=== PATIENT | male | born 1945 | race Caucasian/White ===

== ENCOUNTER 2016-10-20 12:52 | Emergency (ER) | payer MEDICARE ==
[~2016-10-20 12:52] MED LIST: ALLO100T PO; ASPI81TA44 PO; ATEN100T PO; ATOR40TA59 PO; LISI10TA2 PO; METF500T4 PO; OMEP20CA9 PO; TAMS0.4C2 PO
[2016-10-20] MEDS ORDERED: AMLO5TAB2 PO (13:35)
--- NOTE | 2016-10-20 14:25 | RAD ---
PQRS Compliance Statement: One or more of the following individualized dose reduction techniques were utilized for this examination: 1. Automated exposure control 2. Adjustment of the mA and/or kV according to patient size 3. Use of iterative reconstruction technique CT of the face without contrast, 10/20/2016: History: Cheek swelling Noncontrast scans were obtained as requested. There is only minimal streaky increased density in the subcutaneous fat of the left cheek compatible with nonspecific edema/ inflammation. No underlying mass or focal fluid collection is seen to suggest abscess. There are a few artifacts in this region related to a dental filling. The paranasal sinuses are clear. The orbital contents are unremarkable. No parotid or submandibular gland abnormality is detected. No submandibular or upper neck adenopathy is evident. No fracture or destructive bony lesion is seen. IMPRESSION: Minimal nonspecific subcutaneous inflammation in the left cheek.
[2016-10-20 15:02] VITALS: BP 151/80
--- NOTE | 2016-10-20 15:09 | PHYS DOC ---
Past Medical History Past Medical History: Diabetes-Type II, GERD, Hypertension Additional Past Medical Histor: rapid heart beat,GOUT Past Surgical History: Appendectomy, Knee Replacement Alcohol Use: None Drug Use: None Adult General Chief Complaint Chief Complaint: FACE SWELLING HPI HPI Patient is a 71 year old male who presents from home with the complaint of left -sided facial swelling and numbness and tingling. The patient first started having some intermittent swelling of his lips and inside of his mouth about a month ago. He saw Dr. Lewis who stopped his lisinopril and put him on Norvasc. It seemed to get better for a week or 2 but then he started again having some intermittent swelling of his lips, both on the outside on the inside, he notices some swollen bumps on the inside of his lips from time to time. This morning, the left side of his face feels somewhat swollen. It also feels a little numb and tingling. He called the office who told him to come to the emergency department. Patient states there is no chance that he accidentally took lisinopril again. He didn't discard it, but he put it when the back of his cabinet. It's in blister packs and he knows for sure that he has not accidentally used it. He did see his dentist to told him that this does not seem to be related to his teeth. He has no pain, just swelling. No fever. PCP Dr. Lewis Review of Systems Review of Systems Constitutional: Denies fever or chills [] Eyes: Denies change in visual acuity, redness, or eye pain [] HENT: Denies nasal congestion or sore throat , denies pain of the teeth or inside the mouth Respiratory: Denies cough or shortness of breath [] Cardiovascular: Denies chest pain Musculoskeletal: Denies back pain or joint pain [] Integument: Denies rash or skin lesions [] Neurologic: Denies headache, he has noticed left-sided facial numbness and tingling that goes along with the swelling Allergies Allergies Allergies Coded Allergies Type Severity Reaction Last Updated Verified lisinopril Allergy Severe facial swelling 10/20/16 Yes Physical Exam Physical Exam Constitutional: Well developed, well nourished, no acute distress, non-toxic appearance. Alert, mentating normally, no difficulty swallowing or talking HENT: Normocephalic, atraumatic, bilateral external ears normal, bilateral EACs normal with some cerumen bilaterally, nose normal. There is mild swelling on the left side of the face, no tenderness, not red, not fluctuant. It is soft nonspecific swelling. It is located approximately adjacent to the first second and third upper molars on the left. It is superior to the parotid/mandibular angle. Intraorally, dentition does not have any marked abnormalities. There appears to be swelling on the inside of the cheek as well but no redness, no induration. No lesions noted. Tongue and lips are normal. Oropharynx, uvula, are normal. There is no facial asymmetry of a neurologic variety, the facial asymmetry is due to the mild swelling. Eyes: PERRLA, EOMI, conjunctiva normal, no discharge. [] Neck: Normal range of motion, no tenderness, supple, no stridor. No masses, no lymphadenopathy. Cardiovascular:Heart rate regular rhythm, no murmur [] Lungs & Thorax: Bilateral breath sounds clear to auscultation [] Skin: Warm, dry, no erythema, no rash. [] Extremities: No tenderness, no cyanosis, no clubbing, ROM intact, no edema. [] Neurologic: Alert and oriented X 3, normal motor function, normal sensory function, no focal deficits noted. [] Current Patient Data Vital Signs Vital Signs Date Time Temp Pulse Resp B/P Pulse Ox O2 Delivery O2 Flow Rate FiO2 10/20/16 15:02 62 22 151/80 98 Room Air 10/20/16 13:16 97.6 97.6 EKG EKG [] Radiology/Procedures Radiology/Procedures CT of the face without contrast, 10/20/2016: History: Cheek swelling Noncontrast scans were obtained as requested. There is only minimal streaky increased density in the subcutaneous fat of the left cheek compatible with nonspecific edema/ inflammation. No underlying mass or focal fluid collection is seen to suggest abscess. There are a few artifacts in this region related to a dental filling. The paranasal sinuses are clear. The orbital contents are unremarkable. No parotid or submandibular gland abnormality is detected. No submandibular or upper neck adenopathy is evident. No fracture or destructive bony lesion is seen. IMPRESSION: Minimal nonspecific subcutaneous inflammation in the left cheek. [] Course & Med Decision Making Course & Med Decision Making Pertinent Labs and Imaging studies reviewed. (See chart for details) 71-year-old male with intermittent facial swelling mostly around the lips for the past month, was originally attributed possibly to lisinopril, and in fact stopping the lisinopril did seem to help for a while, now has recurrence of swelling more so on the left cheek area although he has not been exposed to an GREGORIO inhibitor. The swelling today is mild. It does not appear to be cellulitis. It does not appear to be interfering with his airway or swallowing. CT scan was obtained and read by the radiologist. They noted minimal nonspecific subcutaneous edema/inflammation in the left cheek. No mass, no abscess. I discussed the case with Dr. Lewis, patient's PCP. Dr. Lewis will follow him up in the office to see how his symptoms are doing. He suggested that we start him on a Medrol Dosepak which I did. Discussed this with the patient who is comfortable with discharge. During over 3 hours in the emergency department, the patient's facial swelling did not worsen, if anything did get a little bit better prior to discharge. [] Dragon Disclaimer Dragon Disclaimer This electronic medical record was generated, in whole or in part, using a voice recognition dictation system. Departure Departure Impression: Primary Impression: Left facial swelling Disposition: 01 HOME, SELF-CARE Condition: STABLE Referrals: Denise LEWIS MD (PCP) Additional Instructions: Today, CT scan did not show any serious cause of the swelling. I discussed your case with Dr. Lewis. Call the office for a follow-up appointment for recheck. If you get worse, if your swelling interferes with your swallowing or breathing, return to the ED right away. Continue the medications you are taking. We have added another course of steroids for inflammation. Scripts Methylprednisolone (Medrol)4 Mg Tab.ds.pk1 Pkg PO UD #1 PKG As directed for facial swelling Prov:BERTO VALVERDE MD 10/20/16 BERTO VALVERDE MD Oct 20, 2016 15:09
[2016-10-20] MEDS ORDERED: METH4TAB2 PO (15:42)
== END 2016-10-20 15:52 | disposition home or self-care (01) ==
LOC: ER 12:52
DX: R22.0 Localized swelling, mass and lump, head (principal); R20.0 Anesthesia of skin; R20.2 Paresthesia of skin; E11.9 Type 2 diabetes mellitus without complications; I10 Essential (primary) hypertension; K21.9 Gastro-esophageal reflux disease without esophagitis; M10.9 Gout, unspecified; Z90.49 Acquired absence of other specified parts of digestive tract; Z88.8 Allergy status to other drugs, medicaments and biological substances
CPT/HCPCS: 70486; 99284-25

== ENCOUNTER 2018-04-10 14:17 | Emergency (ER) | payer MEDICARE ==
[~2018-04-10] VITALS: Ht 172.7 cm; Wt 90.7 kg
[~2018-04-10 14:17] MED LIST changes: +AMLO5TAB2 PO; -ASPI81TA44 PO; +ASPI81TA59 PO; -METF500T4 PO; +METF500T5 PO; +METH4TAB2 PO
[2018-04-10] MEDS ORDERED: ASPIRIN 325 MG TABLET PO ONE (14:45)
[2018-04-10 14:51] LABS: BASO % 1 % (0-3); EOS # 0.1 x10^3/uL (0.0-0.7); EOS % 2 % (0-3); HEMATOCRIT 42.2 % (39.0-53.0); HEMOGLOBIN 14.5 g/dL (13.0-17.5); LYMPH # 1.8 x10^3/uL (1.0-4.8); LYMPH % 30 % (24-48); MEAN CORPUSCULAR HEMOGLOBIN 30 pg (25-35); MEAN CORPUSCULAR HGB CONC 34 g/dL (31-37); MEAN CORPUSCULAR VOLUME 87 fL (79-100); MONO # 0.5 x10^3/uL (0.0-1.1); MONO % 8 % (0-9); NEUT # 3.7 x10^3uL (1.8-7.7); NEUT % 60 % (31-73); PLATELET COUNT 237 x10^3/uL (140-400); RED BLOOD COUNT 4.86 x10^6/uL (4.30-5.70); RED CELL DISTRIBUTION WIDTH 14.5 % (11.5-14.5); WHITE BLOOD COUNT 6.2 x10^3/uL (4.0-11.0)
[2018-04-10 15:04] LABS: CALCIUM 9.6 mg/dL (8.5-10.1); GFR 73.7; POTASSIUM 3.8 mmol/L (3.5-5.1)
[2018-04-10 15:07] LABS: ALBUMIN 4.2 g/dL (3.4-5.0); ALBUMIN/GLOBULIN RATIO 1.2 (1.0-1.7); TOTAL BILIRUBIN 0.6 mg/dL (0.2-1.0); TOTAL PROTEIN 7.6 g/dL (6.4-8.2)
--- NOTE | 2018-04-10 15:23 | EKG ---
[facility] [address] [place] [address] Test Date: 2018-04-10 Test Time: 14:22:14 Pat Name: PAULA ERAZO Department: Room: Gender: M [employer] Associate: : 1945 Requested By: EVAN KEE Order Number: [id number] Reading MD: Sreekanth Keenan MD Measurements Intervals Windfall Rate: 62 P: 42 ND: 212 QRS: 13 QRSD: 84 T: 18 QT: 404 QTc: 412 Interpretive Statements SINUS RHYTHM Electronically Signed On 04-13-2018 15:16:09 CDT by Sreekanth Keenan MD
--- NOTE | 2018-04-10 15:25 | RAD ---
PA and lateral chest radiograph. History: Chest pain for 4 days. Comparison: None. Findings: Cardiomediastinal silhouette is within normal limits for size. Bilateral lung pagan appear clear without evidence of infiltrate, effusion, or pneumothorax. Multiple thoracic levels demonstrate marginal disc osteophytes. Impression: 1. No acute cardiopulmonary process. Electronically signed by: Yevgeniy Pedro MD (04/10/2018 3:22 PM) [facility]
--- NOTE | 2018-04-10 15:50 | PHYS DOC ---
Past Medical History Past Medical History: Diabetes-Type II, GERD, Other Additional Past Medical Histor: rapid heart rate Past Surgical History: Appendectomy Additional Past Surgical Histo: knee surgery Alcohol Use: None Drug Use: None Adult General Chief Complaint Chief Complaint: CHEST PAIN HPI HPI Patient is a 73 year old M who presents with chest pain that is dull in nature for the last 2 days. Patient reports this started out as sharp intermittent pain and then became dull. He thinks it may be reflux, but isn't sure. It is not exertional in nature. No sob or diaphoresis. He reports that the first day he could let out a large burp and the pain would subside. Last stress test years ago. Hx of tachyarrhythmia, borderline diabetic. Review of Systems Review of Systems Constitutional: Denies fever or chills [] Respiratory: Denies cough or shortness of breath [] Cardiovascular: Dull chest pain, no palpitations GI: Denies abdominal pain, nausea, vomiting Musculoskeletal: Denies back pain or joint pain [] Integument: Denies rash or skin lesions [] Neurologic: Denies headache, focal weakness or sensory changes [] All other systems were reviewed and found to be within normal limits, except as documented in this note. Current Medications Current Medications Current Medications Medications (Trade) Dose Ordered Sig/[place] Start Time Stop Time Status Last Admin Dose Admin Aspirin (Clemente Aspirin) 325 mg 1X ONCE 04/10/18 14:45 04/10/18 14:48 DC Allergies Allergies Allergies Coded Allergies Type Severity Reaction Last Updated Verified lisinopril Allergy Severe facial swelling 10/20/16 Yes Physical Exam Physical Exam Constitutional: Well developed, well nourished, no acute distress, non-toxic appearance. [] HENT: Normocephalic, atraumatic Eyes: PERRLA, EOMI, conjunctiva normal, no discharge. [] Neck: Normal range of motion, no tenderness, supple, no stridor. [] Cardiovascular:Heart rate regular rhythm, no murmur [] Lungs & Thorax: Bilateral breath sounds clear to auscultation [] Abdomen: Bowel sounds normal, soft, no tenderness, no masses, no pulsatile masses. [] Skin: Warm, dry, no erythema, no rash. [] Neurologic: Alert and oriented X 3, normal motor function, normal sensory function, no focal deficits noted. [] Psychologic: Affect normal, judgement normal, mood normal. [] Current Patient Data Vital Signs Vital Signs Date Time Temp Pulse Resp B/P (MAP) Pulse Ox O2 Delivery O2 Flow Rate FiO2 04/10/18 15:28 58 16 133/72 (92) 96 Room Air 04/10/18 14:28 99.0 99.0 Lab Values Laboratory Tests Test 04/10/18 14:30 White Blood Count 6.2 x10^3/uL (4.0-11.0) Red Blood Count 4.86 x10^6/uL (4.30-5.70) Hemoglobin 14.5 g/dL (13.0-17.5) Hematocrit 42.2 % (39.0-53.0) Mean Corpuscular Volume 87 fL (79-100) Mean Corpuscular Hemoglobin 30 pg (25-35) Mean Corpuscular Hemoglobin Concent 34 g/dL (31-37) Red Cell Distribution Width 14.5 % (11.5-14.5) Platelet Count 237 x10^3/uL (140-400) Neutrophils (%) (Auto) 60 % (31-73) Lymphocytes (%) (Auto) 30 % (24-48) Monocytes (%) (Auto) 8 % (0-9) Eosinophils (%) (Auto) 2 % (0-3) Basophils (%) (Auto) 1 % (0-3) Neutrophils # (Auto) 3.7 x10^3uL (1.8-7.7) Lymphocytes # (Auto) 1.8 x10^3/uL (1.0-4.8) Monocytes # (Auto) 0.5 x10^3/uL (0.0-1.1) Eosinophils # (Auto) 0.1 x10^3/uL (0.0-0.7) Basophils # (Auto) 0.0 x10^3/uL (0.0-0.2) D-Dimer (Bijal) < 0.27 ug/mlFEU Sodium Level 138 mmol/L (136-145) Potassium Level 3.8 mmol/L (3.5-5.1) Chloride Level 103 mmol/L (98-107) Carbon Dioxide Level 25 mmol/L (21-32) Anion Gap 10 (6-14) Blood Urea Nitrogen 13 mg/dL (8-26) Creatinine 1.0 mg/dL (0.7-1.3) Estimated GFR (Cockcroft-Gault) 73.7 BUN/Creatinine Ratio 13 (6-20) Glucose Level 115 mg/dL (70-99) H Calcium Level 9.6 mg/dL (8.5-10.1) Total Bilirubin 0.6 mg/dL (0.2-1.0) Aspartate Amino Transferase (AST) 25 U/L (15-37) Alanine Aminotransferase (ALT) 38 U/L (16-63) Alkaline Phosphatase 76 U/L (46-116) Troponin I Quantitative < 0.017 ng/mL (0.000-0.055) Total Protein 7.6 g/dL (6.4-8.2) Albumin 4.2 g/dL (3.4-5.0) Albumin/Globulin Ratio 1.2 (1.0-1.7) Laboratory Tests 04/10/18 14:30 Laboratory Tests 04/10/18 14:30 EKG EKG [] Radiology/Procedures Radiology/Procedures CXR Impression: 1. No acute cardiopulmonary process. Electronically signed by: Yevgeniy Pedro MD (04/10/2018 3:22 PM) [facility][] Course & Med Decision Making Course & Med Decision Making Pertinent Labs and Imaging studies reviewed. (See chart for details) Patient reports he has to go home to care for his and cannot stay overnight in the hospital. I think it is reasonable to have an outpatient evaluation at this time. Strongly encouraged to return for any change in symptoms. Dragon Disclaimer Dragon Disclaimer This electronic medical record was generated, in whole or in part, using a voice recognition dictation system. Departure Departure Impression: Primary Impression: Chest pain Disposition: 01 HOME, SELF-CARE Condition: STABLE Referrals: Denise LEWIS MD (PCP) Patient Instructions: Chest Pain (Nonspecific) Additional Instructions: Call your doctor in the am for follow up. Consider stress test. Problem Qualifiers Primary Impression: Chest pain Chest pain type: unspecified Qualified Codes: R07.9 - Chest pain, unspecified EVAN KEE ASSIGNMENT DESK EDITOR Apr 10, 2018 15:50
[2018-04-10 16:28] VITALS: BP 126/74
== END 2018-04-10 16:50 | disposition home or self-care (01) ==
LOC: ER 14:17
DX: R07.89 Other chest pain (principal); K21.9 Gastro-esophageal reflux disease without esophagitis; E11.9 Type 2 diabetes mellitus without complications; Z90.89 Acquired absence of other organs; Z88.8 Allergy status to other drugs, medicaments and biological substances
CPT/HCPCS: 36415; 71046; 80053; 84484; 85025; 85379; 93005; 99285-25

== ENCOUNTER → 2018-05-04 | Outpatient (CLI) | payer MEDICARE ==
[2018-04-10 16:28] VITALS: BP 126/74
[~2018-05-04] MED LIST changes: -AMLO5TAB2 PO; +AMLO5TAB7 PO; +METF500T16 PO; -METF500T5 PO; +REGADENOSON 0.4 MG/5 ML DISP.SYRIN. IV ONE
--- NOTE | 2018-05-04 13:15 | RAD ---
MR#: [id number] Date of Study: 05/04/2018 Ordering Physician: JOHNNIE JAY, Referring Physician: SHIELA COCHRAN Tech: JUNE Murphy APPROVED REPORT Test Type: Pharmacological Stress Nurse/Tech: Nicole Jansen RN Test Indications: Tachycardia Cardiac History: Hypertension, Diabetes Medications: See Electronic Medical Record Medical History: See Electronic Medical Record Resting ECG: SB Resting Heart Rate: 54 bpm Resting Blood Pressure: 126/76mmHg Pretest Chest Pain: None Nurse/Tech Notes S1,S2 and lungs diminished in the bases. Consent: The procedure was explained to the patient in lay terms. Informed consent was witnessed. Waldo eout was entered into [employer]. History and Stress Test performed by JUNE Murphy Pharm. Details Pharmacologic stress testing was performed using 0.4mg per 5ml of regadenoson given intravenously ove r 7-10 seconds. Stress Symptoms Dyspnea POST EXERCISE Reason for Termination: Infusion complete Target HR: No Max HR: 77 bpm Max Blood Pressure: 136/78mmHg Blood Pressure response to exercise: Normal blood pressure response during stress. Heart Rate response to exercise: WNL Chest Pain: No. Arrhythmia: No. ST Change: Yes. slight ST elevation in leads V4-V6 during stress which returned to baseline. INTERPRETATION Stress EKG Conclusion: Baseline EKG showed sinus rhythm. No ischemic changes at peak stress. No arr hythmias. Imaging Protocol IMAGE PROTOCOL: Rest Tc-99m/stress Tc-99m 1 day Rest: Stress: Viability: Radiopharm.Tc99m [id number] Sestamibi Dose11.2mCi 32mCi Duration 15min. 13min. Img Date 05/04/2018 05/04/2018 Inj-Img [id number]. 60min. Rest Admin Site:IV - Right AntecubitalAdministrator:JUNE Murphy Stress Admin Site: IV - Right AntecubitalAdministrator: ARRON Malik, ARRT (R)(N) STRESS DATA End Diast. Vol.83.0mlLVEDV index BSA41.0ml End Syst. Vol.29.0mlLVESV index BSA14.0ml Myocardial Vdrn422.0gEject. Uikbkpqn22.0% Stress Scores Regional WT0.00Summed WT8.00 Regional WM0.00Summed WM4.00 Study quality was good. Left Ventricular size was Normal at Rest and Stress. Lung uptake was Normal. Left Ventricular ejection fraction is 65%. The rest and stress images show normal perfusion, normal contraction and thickening. LV Perf. Quant 17 Seg. SSS0.00 17 Seg. SRS0.00 17 Seg. SDS0.00 Stress Defect Extent (% LAD)0.00Rest Defect Extent (% LAD)0.00Rev. Defect Extent (% LAD)0.00 Stress Defect Extent (% LCX) 7.50Rest Defect Extent (% LCX)0.00Rev. Defect Extent (% LCX)3.80 Stress Defect Extent (% RCA)0.00Rest Defect Extent (% RCA)0.00Rev. Defect Extent (% RCA)0.00 Stress Defect Extent (% PIERRE)1.30Rest Defect Extent (% PIERRE)0.00Rev. Defect Extent (% PIERRE)0.70 Conclusion 1. Regadenoson cardioisotope stress test did not show any evidence of ischemia or infarct. 2. Normal left ventricular systolic function with ejection fraction calculated at 65%. 3. Low risk for cardiac events. Signed by : Watson Patterson, Electronically Approved : 05/04/2018 13:14:20
== END | disposition home or self-care (01) ==
LOC: NM 09:40
PROVIDERS: ATTEND Internal Medicine Cardiovascular Disease
DX: R07.89 Other chest pain (principal); I10 Essential (primary) hypertension; E11.9 Type 2 diabetes mellitus without complications; K21.9 Gastro-esophageal reflux disease without esophagitis; M10.9 Gout, unspecified; Z90.49 Acquired absence of other specified parts of digestive tract; Z88.8 Allergy status to other drugs, medicaments and biological substances
CPT/HCPCS: 78452; 93017; 96374; 96375; 96376; A9500; J2785

== ENCOUNTER → 2018-12-28 | Outpatient (CLI) | payer MEDICARE ==
[~2018-12-28] MED LIST changes: +AMLO5TAB10 PO; -AMLO5TAB7 PO; +OMEP20CA10 PO; -OMEP20CA9 PO; -REGADENOSON 0.4 MG/5 ML DISP.SYRIN. IV ONE
--- NOTE | 2018-12-28 13:22 | KCIC ---
EXAM: Right shoulder, 3 views. HISTORY: Pain. COMPARISON: None. FINDINGS: 3 views of the right shoulder obtained. There is no fracture, dislocation or subluxation. There is mild acromial clear subchondral cirrhosis, subchondral cyst formation and spurring. No significant subacromial spur is seen. There is mild inferior glenoid spurring with a tiny adjacent joint loose body or chronic fragmented osteophyte. There is degenerative change at the greater tuberosity. IMPRESSION: 1. Mild acromioclavicular and glenohumeral osteoarthritis. There is a tiny chronic fragmented osteophyte or joint loose body inferior to the glenoid. 2. No acute osseous finding. Electronically signed by: Enid Bennett MD (12/28/2018 1:20 PM) [facility]
== END | disposition home or self-care (01) ==
LOC: KCIC 10:23
PROVIDERS: ATTEND Nurse Practitioner Gerontology
DX: M19.011 Primary osteoarthritis, right shoulder (principal); M75.81 Other shoulder lesions, right shoulder; M25.811 Other specified joint disorders, right shoulder
CPT/HCPCS: 73030

== ENCOUNTER → 2019-01-23 | Outpatient (CLI) | payer MEDICARE ==
[~2019-01-23] MED LIST changes: +0.9 % SODIUM CHLORIDE 10 ML DISP.SYRIN. ID ONE; +GADOBUTROL 10 MMOL/10 ML VIAL INT ART ONE; +IOHEXOL 300 MG/ML 50 ML VIAL. INT ART ONE; +LIDOCAINE 1% Multi-Dose 20 ML VIAL. ID ONE
--- NOTE | 2019-01-23 15:16 | KCIC ---
MRI arthrogram of the right shoulder HISTORY: Right shoulder pain and decreased range of motion for 3 weeks. TECHNIQUE: Routine 4 plane sequences are obtained. Intra-articular contrast injected prior to scanning. FINDINGS: The acromioclavicular joint is degenerative with undersurface hypertrophy. Full-thickness rupture of the supraspinatus and infraspinatus tendon. Retraction measures 3.5 cm. There is mild rotator cuff muscle atrophy. Mild partial subscapularis tendon tear, with tendinosis. Contrast enters the subdeltoid bursa. Mild degenerative changes at the glenohumeral joint. There is a degenerative tear of the posterosuperior labrum. Severe biceps tendinosis and tearing. There is mild medial subluxation of the tendon. There is no bone destruction or acute fracture. Mild edema within the supraspinatus or infraspinatus tendons. IMPRESSION: 1. Large rotator cuff tear. Complete retracted rupture of supraspinatus and infraspinatus tendon, partial subscapularis tendon tear. 2. High-grade biceps tendon tear with medial subluxation. 3. Primary arthritis. 4. Posterosuperior labral degenerative tear. Electronically signed by: Yevgeniy Curtis MD (01/23/2019 3:13 PM) [facility]
--- NOTE | 2019-01-23 17:20 | KCIC ---
PROCEDURE: Right shoulder injection using fluoroscopic guidance, prior to MR. HISTORY: Shoulder pain. TECHNIQUE: The procedure was explained to the patient as were potential risks, including among others infection, bleeding or allergic reaction. All questions were answered. Informed written and verbal consent was obtained. The shoulder was prepped and draped in the usual sterile manner. Following administration of local anesthetic, a 22-gauge needle was advanced into the anterior shoulder. Following negative aspiration, 12 cc of a solution of 5cc Omnipaque-300 contrast, 5 cc 1% lidocaine, 10 cc normal saline, and 0.1 cc gadolinium was injected without difficulty. The needle was removed. There was good hemostasis at the injection site. The patient left in stable condition without immediate complication. A single spot image is obtained. FLUOROSCOPY TIME:?28 seconds Electronically signed by: Yevgeniy Curtis MD (01/23/2019 5:17 PM) [facility]
== END | disposition home or self-care (01) ==
LOC: KCIC 12:41
PROVIDERS: ATTEND Nurse Practitioner Gerontology
DX: S43.081A Other subluxation of right shoulder joint, initial encounter (principal); M89.311 Hypertrophy of bone, right shoulder; M62.511 Muscle wasting and atrophy, not elsewhere classified, right shoulder; M13.811 Other specified arthritis, right shoulder; E11.9 Type 2 diabetes mellitus without complications; Z79.01 Long term (current) use of anticoagulants; X58.XXXA Exposure to other specified factors, initial encounter; Y93.89 Activity, other specified; Y92.89 Other specified places as the place of occurrence of the external cause; Y99.8 Other external cause status
CPT/HCPCS: 73040; 73222; A9585; Q9967